=== PATIENT | female | born 1980 | race Caucasian/White ===

== ENCOUNTER 2020-04-02 05:44 | Emergency (ER) | payer OTHER ==
[~2020-04-02] VITALS: Ht 162.5 cm; Wt 108.9 kg
[2020-04-02 06:24] LABS: BILIRUBIN Negative (Negative); BLOOD 3+ (Negative); CLARITY Cloudy (Clear); COLOR Dark Yellow (Yellow); GLUCOSE Negative (Negative); KETONE 1+ (Negative); LEUKO ESTERASE 1+ (Negative); NITRITE Negative (Negative); SPECIFIC GRAVITY >= 1.030 (1.001-1.030)
[2020-04-02 06:39] LABS: BACTERIA 2+; CALCIUM OXALATE CRYSTALS 1+; MUCOUS 1+; RBC 21-30 rbc/hpf (0-2)
[2020-04-02 06:53] LABS: BASO % 0.3 % (0.0-1.0); EOS # 0.1 10*3/uL (0.0-0.4); EOS % 1.1 % (1.0-4.0); HEMATOCRIT 41.9 % (37.0-47.0); LYMPH # 1.3 10*3/uL (1.3-4.4); LYMPH % 9.7 % (27.0-41.0); MEAN CELL VOLUME 89.7 fl (81.0-99.0); MEAN CORPUSCULAR HGB 29.1 pg (27.0-31.0); MEAN CORPUSCULAR HGB CONC 32.5 g/dl (33.0-37.0); MEAN PLATELET VOLUME 10.6 fl (9.6-12.3); MONO # 0.8 10*3/uL (0.1-1.0); MONO % 5.8 % (3.0-9.0); NEUT # 10.7 10*3/uL (2.3-7.9); NEUT % 82.7 % (47.0-73.0); PLATELET COUNT AUTOMATED 253 10*3/uL (130-400); RED BLOOD COUNT 4.67 10*6/uL (4.10-5.10); RED CELL DISTRI WIDTH 12.8 % (0-14.5)
[2020-04-02 07:10] LABS: ALBUMIN 3.8 gm/dl (3.1-4.5); ALKALINE PHOSPHATASE 60 U/L (45-117); BUN 20 mg/dl (7-24); CHLORIDE 109 mmol/L (98-107); CREATININE 0.85 mg/dL (0.55-1.02); SGOT/AST 7 IU/L (3-35); SGPT/ALT 18 U/L (12-78); SODIUM 137 mmol/L (136-145); TOTAL PROTEIN 7.7 gm/dL (6.4-8.2)
[2020-04-02] MEDS ORDERED: FLOMAX0.4 MG PO (08:37)
[2020-04-02] MEDS ORDERED: TYLENOL325 M1 PO (08:37)
[2020-04-02] MEDS ORDERED: NAPROXEN250 MG PO (08:37)
[2020-04-02] MEDS ORDERED: REGLAN10 M1 PO (08:37)
== END 2020-04-02 10:05 | disposition home or self-care (01) ==
LOC: ED 05:44
PROVIDERS: Emergency Medicine
DX: N20.0 Calculus of kidney (principal); R16.1 Splenomegaly, not elsewhere classified; N83.202 Unspecified ovarian cyst, left side; Z88.6 Allergy status to analgesic agent